=== PATIENT | female | born 1995 | race Caucasian/White ===

== ENCOUNTER 2018-08-07 16:24 | Outpatient (CLI) | payer MEDICAID ==
[~2018-08-07] VITALS: Ht 149.9 cm; Wt 74.1 kg
[2018-08-07 17:25] VITALS: BP 108/68; PULSE 84; RESP 18; Ht 149.9 cm; Wt 74.1 kg
[2018-08-07] MEDS ORDERED: PNV11TAB PO (17:27)
--- NOTE | 2018-08-07 20:41 | PN ---
Triage Information Date/Time Reason for visit: Hand edema and numbness Weeks of Gestation 38 weeks and 2 days /Para Diabetes: none Hypertention: none Objective Vital Signs Date Temp Pulse Resp B/P (MAP) Pulse Ox O2 O2 Flow FiO2 Time Delivery Rate 08/07/18 98.0 84 18 108/68 17:25 (81) Heart Rate: 140's Contractions: None Results/Medications Results 24 hrs Laboratory Tests Test 08/07/18 17:10 Urine Color YELLOW Urine Clarity CLEAR Urine pH 7.0 Urine Specific [place] 1.015 Urine Ketones NEGATIVE Urine Nitrite NEGATIVE Urine Bilirubin NEGATIVE Urine Urobilinogen NEGATIVE Urine Leukocyte Esterase TRACE A Urine Microscopic RBC 0 Urine Microscopic WBC 1 Urine Squamous Epithelial Cells FEW Urine Mucus FEW A Urine Hemoglobin NEGATIVE Urine Glucose NEGATIVE Urine Total Protein NEGATIVE Disposition: Discharge Assessment/Plan 23 years old with single intrauterine at 38 weeks and 2 days complaining of bilateral hand edema and numbness. She states good movement. She denies nausea, vomiting, shortness of breath, chest pain, headache, visual changes, vaginal bleeding or LOF. -FHR: No sign of metabolic acidosis- Category I -Contractions: None -Ultrasound performed: Normal AP -SVE: 1.5/50/-2 cephalic/intact -I discussed the edema could be normal there is no pathology finding on exam. Numbness is due to edema around median nerve. Patient reassured -Symptoms and sign of labor, preeclampsia, kick count discussed with patient, she voiced understanding. All of her questions answered. -Patient was discharged home in stable condition with the appropriate discharge instructions provided. I would like patient to have close follow-up with her primary physician or outpatient clinic in 1-2 days or return to triage for worsening symptoms or any other urgent concerns. VINICIO NAM Aug 07, 2018 20:41
== END 2018-08-07 18:41 | disposition home or self-care (01) ==
LOC: OBT 16:24 → L-D 16:25 → OBT 18:41
PROVIDERS: ATTEND Obstetrics & Gynecology
DX: O12.03 Gestational edema, third trimester (principal); Z3A.38 38 weeks gestation of pregnancy
CPT/HCPCS: 76818; 81001; Z7500; G0463

== ENCOUNTER 2018-08-17 10:13 | Outpatient (CLI) | payer MEDICAID ==
[~2018-08-17 10:13] MED LIST: PNV11TAB PO
[2018-08-17 10:21] VITALS: BP 104/59; PULSE 84
--- NOTE | 2018-08-17 11:37 | PN ---
Triage Information Date/Time 08/17/18 Reason for visit: sent from clinic for hand edema Weeks of Gestation 39w5d /Para Diabetes: none Hypertention: none Objective Vital Signs Date Temp Pulse Resp B/P (MAP) Pulse Ox O2 O2 Flow FiO2 Time Delivery Rate 08/17/18 98.2 84 104/59 10:21 (74) Heart Rate: 140's Heart Rate Comments CAT I Contractions: >10 Minutes Apart Exam VE 1.5/70/-2 Results/Medications Results 24 hrs Laboratory Tests Test 08/17/18 11:00 Urine Color YELLOW Urine Clarity SLIGHTLY CLOUDY A Urine pH 6.0 Urine Specific [place] 1.020 Urine Ketones TRACE A Urine Nitrite NEGATIVE Urine Bilirubin NEGATIVE Urine Urobilinogen 1+ H Urine Leukocyte Esterase NEGATIVE Urine Microscopic RBC 1 Urine Microscopic WBC 2 Urine Squamous Epithelial Cells FEW Urine Mucus FEW A Urine Hemoglobin NEGATIVE Urine Glucose 1+ H Urine Total Protein NEGATIVE Imaging Results BPP 8/8 AP 7.2 Disposition: Discharge Assessment/Plan A IUP 39w5d borderline oligohydramnios P discharge home with routine labor instructions otherwise RTH in 2days for AP GUILLERMO BUI MD Aug 17, 2018 11:37
--- NOTE | 2018-08-17 11:43 | TRIAGE ---
OB Triage Datetime Report Generated by CPN: 08/17/2018 11:43 Datetime: 08/17/2018 11:23 Stage of : OB Triage Datetime: 08/17/2018 11:17 Labor Evaluation Frequency: 6-10 Monitor Mode: External Quality: Mild Pattern: Normal: <= 5 Contractions in 10 Minutes Resting Tone [place]: Relaxed Contraction Comments: denies feeling Heart Rate FHR Baseline Rate: 135 Monitor Mode: External US Variability: Moderate 6-25 bpm Accelerations: 10X10 Decelerations: None Category: Category I Pain Assessment Pain Scale: 0 Pain Presence: None/Denies Pain Type: N/A Pain Goal: 3 Pain Relief Measures: Comfort Measures Datetime: 08/17/2018 10:43 Stage of : OB Triage Datetime: 08/17/2018 10:30 Stage of : OB Triage Datetime: 08/17/2018 10:25 Vaginal Exam Dilatation (cms): 1.5 Effacement (%): 70 Station: -2 Exam By: S TREVIN Vaginal Bleeding: None Cervix, Consistency: Soft Cervix, Position: Midposition Presentation 'A': Cephalic Datetime: 08/17/2018 10:18 Stage of : OB Triage Assessment Type: Triage Maternal Assessment Level of Consciousness: Fully Conscious DTR's/Clonus: DTRs 2+; No Clonus Headache: Denies Blurred Vision: No Respiratory Effort: Unlabored; Regular Rhythm; Equal Expansion Breath Sounds, Left: Clear and Equal Breath Sounds, Right: Clear and Equal Nausea/Vomiting: Denies RUQ Epigastric Pain: Denies Facial Edema: None Temperature Route: Axillary Fall Risk Assessment History of Falling: (0) No Secondary Diagnosis: (0) No Ambulatory Aid: (0) Bedrest/Nurse Assist IV Therapy: (0) No Gait: (0) Normal/Bedrest/Immobile Mental Status: (0) Oriented to Own Ability Fall Score: 0 Fall Risk Score Definition: No Risk: No action required Labor Evaluation Frequency: 1 Monitor Mode: External Duration (sec)2399: 50 Quality: Mild Pattern: Normal: <= 5 Contractions in 10 Minutes Intensity IUP (mmHg): DENIES FEELING Resting Tone [place]: Relaxed Heart Rate FHR Baseline Rate: 135 Monitor Mode: External US Variability: Moderate 6-25 bpm Accelerations: None Decelerations: None Pain Assessment Pain Scale: 0 Pain Presence: None/Denies Pain Type: N/A Pain Goal: 3 Pain Relief Measures: Comfort Measures Datetime: 08/17/2018 10:16 Time of Arrival: 08/17/2018 10:00 EGA: 39.5 Arrived By: Ambulatory Arrived From: Office Chief Complaint: REFERRED FROM DR OFFICE FOR HAND EDEMA, DENIES LEAKING, BLEEDING OR UC'S Movement: Present Contractions: Denies/Absent Rupture of Membranes: Denies Vaginal Bleeding: None Vaginal Discharge: Denies Recent Sexual Intercouse: Denies Abdominal Trauma: Not Applicable Patient Complaints: None Time Provider Notified: 08/17/2018 10:45 Provider Notified: HADADIAN Initial Plan: MONITOR, BPP Datetime: 08/07/2018 18:39 Stage of : OB Triage Datetime: 08/07/2018 17:56 Labor Evaluation Frequency: 5-8 Monitor Mode: External Duration (sec)2399: 30-50 Quality: Mild Pattern: Normal: <= 5 Contractions in 10 Minutes Resting Tone [place]: Relaxed Heart Rate FHR Baseline Rate: 125 Monitor Mode: External US Variability: Moderate 6-25 bpm Accelerations: 10X10 Decelerations: None Category: Category I Pain Assessment Pain Scale: 0 Pain Presence: None/Denies Pain Type: N/A Pain Goal: 3 Pain Relief Measures: Comfort Measures Datetime: 08/07/2018 17:12 Vaginal Exam Dilatation (cms): 1.5 Effacement (%): 50 Station: -2 Exam By: S TREVIN Vaginal Bleeding: None Cervix, Consistency: Soft Cervix, Position: Midposition Presentation 'A': Cephalic Datetime: 08/07/2018 17:05 Stage of : OB Triage Datetime: 08/07/2018 16:55 Stage of : OB Triage Assessment Type: Triage Maternal Assessment Level of Consciousness: Fully Conscious DTR's/Clonus: DTRs 2+; No Clonus Headache: Denies Blurred Vision: No Respiratory Effort: Unlabored; Regular Rhythm; Equal Expansion Breath Sounds, Left: Clear and Equal Breath Sounds, Right: Clear and Equal Nausea/Vomiting: Denies RUQ Epigastric Pain: Denies Facial Edema: None Temperature Route: Axillary Fall Risk Assessment History of Falling: (0) No Secondary Diagnosis: (0) No Ambulatory Aid: (0) Bedrest/Nurse Assist IV Therapy: (0) No Gait: (0) Normal/Bedrest/Immobile Mental Status: (0) Oriented to Own Ability Fall Score: 0 Fall Risk Score Definition: No Risk: No action required Labor Evaluation Frequency: APPLIED Monitor Mode: External Resting Tone [place]: Relaxed Heart Rate FHR Baseline Rate: 120 Monitor Mode: External US Variability: Moderate 6-25 bpm Decelerations: None Pain Assessment Pain Scale: 0 Pain Presence: None/Denies Pain Type: N/A Pain Goal: 3 Pain Relief Measures: Comfort Measures Datetime: 08/07/2018 16:53 Time of Arrival: 08/07/2018 16:19 EGA: 38.2 Arrived By: Ambulatory Arrived From: Dr. Nuñez Chief Complaint: REFERRED FROM OFFICE FOR HX OF PTL, DENIES LEAKING, BLEEDING OR UC'S Movement: Present Rupture of Membranes: Denies Vaginal Discharge: Denies Recent Sexual Intercouse: Denies Abdominal Trauma: Not Applicable Time Provider Notified: 08/07/2018 17:05 Provider Notified: ebony Initial Plan: MONITOR, BPP. u/a, ve,
== END 2018-08-17 11:35 | disposition home or self-care (01) ==
LOC: L-D 10:13 → OBT 10:13
PROVIDERS: ATTEND Obstetrics & Gynecology
DX: O41.03X0 Oligohydramnios, third trimester, not applicable or unspecified (principal); O12.03 Gestational edema, third trimester; Z3A.39 39 weeks gestation of pregnancy
CPT/HCPCS: 76818; 81001; 87086; Z7500; 81003; G0463

== ENCOUNTER 2018-08-17 17:21 | Inpatient (IN) | payer MEDICAID ==
[~2018-08-17] VITALS: Ht 152.4 cm; Wt 76.1 kg
[2018-08-17] MEDS ORDERED: LIDOCAINE 1% (MPF) 30 ML INJ INJ PRN (17:30)
[2018-08-17] MEDS ORDERED: BUTORPHANOL 2 MG INJ IV PRN (17:30)
[2018-08-17] MEDS ORDERED: CARBOPROST 250 MCG INJ IM PRN ×2 (17:30→22:00)
[2018-08-17] MEDS ORDERED: OXYTOCIN 30 UNITS/LR 500 ML IV SCH ×2 (17:30)
[2018-08-17] MEDS ORDERED: IBUPROFEN 600 MG TAB PO PRN (17:30)
[2018-08-17] MEDS ORDERED: LACTATED RINGER'S 1,000 ML IV SCH (17:30)
[2018-08-17] MEDS ORDERED: OXYTOCIN 30 UNITS/LR 500 ML IV PRN ×2 (17:30→22:00)
[2018-08-17] MEDS ORDERED: MISOPROSTOL 200 MCG TAB PR PRN ×2 (17:30→22:00)
[2018-08-17] MEDS ORDERED: METHYLERGONOVINE 0.2 MG INJ IM PRN ×2 (17:30→22:00)
[2018-08-17 17:36] VITALS: BP 104/59; PULSE 84; RESP 18; Ht 152.4 cm; Wt 76.1 kg
--- NOTE | 2018-08-17 18:21 | HP ---
Date/Time of Note Date/Time of Note DATE: 08/17/18 TIME: 18:15 OB - History Hx of Present Free Text/Dictation 23 y.o who have hx of PTB at 34wwith ist prenancy been on shwetha here in active labor with intact membrane, VE 8cm EFM CAT I tracing course was unevenful GBS neg admitted for expectant management. Chief Complaint: uc's Estimated Due Date: Aug 19, 2018 : 3 Para: 2 Spontaneous : 0 Therapeutic : 0 Care: Good Care Ultrasounds: Normal mid trimester US Medical Complications: None Past Family/Social History * Past Medical, Surgical, Family and Obstetric Histories reviewed from chart. Blood Type: O+ Rubella: immune RPR/VDRL: Negative GBS Status: Negative HBsAG: Negative OB Admission Exam Vital Signs Vital Signs Vital Signs Date Temp Pulse Resp B/P (MAP) Pulse Ox O2 O2 Flow FiO2 Time Delivery Rate 08/17/18 98.2 84 18 104/59 Room Air 17:36 (74) Physical Exam HEENT: WNL Heart: Rhythm Normal Lungs: Clear, Equal Abdomen: WNL Extremities: Normal Reflexes: Normal Cervical Dilatation: 8cm Effacement: 100% Station: -2 Membranes: Intact Amniotic Fluid: Unevaluable Heart Rate: 140's Accelerations: Accelerations Present Decelerations: No Decelerations Varibility: Moderate Contractions on Admission: < 5 Minutes Apart Intensity: Firm OB Assessment/Plan Reason for admission: active labor Other Assessment: IUP 39w5d Plan: Expectant Management GUILLERMO BUI MD Aug 17, 2018 18:21
--- NOTE | 2018-08-17 18:24 | LDN ---
Date/Time of Note Date/Time of Note DATE: 08/17/18 TIME: 18:22 Delivery Summary of normal male Weeks of Gestation 39w5d Placenta Delivered: Spontaneously, Intact & Complete Meconium: none Episiotomy: No Perineal laceration: 0 Anesthesia type: None Estimated blood loss: 150 Sponge & Needle done & correct: Yes All needle counts correct: Yes Any foreign bodies felt in the: No Delivery Information Sex Infant Sex: male Apgars 1 Minute: 8 5 Minute: 9 Suctioning Nose & mouth suctioned at sheeba: Yes Delee suction performed: Yes Umbilical Cord Umbilical cord with: 3 Vessels Cord presentations: no nuchal cord Cord Blood was obtained: Yes Mother & Baby Disposition Disposition Mom & Baby to Maternity; Good: Yes Mom transferred to: Other Baby to NICU: No () GUILLERMO BUI MD Aug 17, 2018 18:24
[2018-08-17 19:55] VITALS: BP 116/58; PULSE 62; RESP 19
[2018-08-17] MEDS ORDERED: ZOLPIDEM 5 MG TAB PO PRN (22:00)
[2018-08-17] MEDS ORDERED: BENZOCAINE 20% 56 ML SPRAY TOP PRN (22:00)
[2018-08-17] MEDS ORDERED: WITCH HAZEL/GLYCERIN PAD PR PRN (22:00)
[2018-08-17] MEDS ORDERED: LANOLIN HPA 1 PKT TOP PRN (22:00)
[2018-08-17] MEDS ORDERED: OXYCODONE/ASPIRIN (4.88/325) TAB PO PRN ×2 (22:00)
[2018-08-18 04:00] VITALS: BP 95/50; PULSE 73; RESP 18
[2018-08-18] MEDS: IBUPROFEN 600 MG TAB PO SCH ×4 (06:00→17:31)
[2018-08-18 07:20] VITALS: BP 100/58; PULSE 65; RESP 16
[2018-08-18] MEDS: SENNA/DOCUSATE NA (8.6MG/50MG) TAB PO SCH ×2 (09:17→21:00)
[2018-08-18 15:30] VITALS: BP 100/63; PULSE 75; RESP 17
--- NOTE | 2018-08-18 17:12 | PN ---
Date/Time of Note Date/Time of Note DATE: 08/18/18 TIME: 17:10 OB Subjective Subjective Subjective PPD# 1 Patient is doing well. She denies nausea, vomiting, shortness of breath, chest pain, headache. She has been ambulating without difficulty, tolerating regular diet. Pain is well controlled on current medications OB Objective Objective Objective VS - Last 72 Hours, by Label Date Temp Pulse Resp B/P (MAP) Pulse Ox O2 O2 Flow FiO2 Time Delivery Rate 08/18/18 98.6 75 17 100/63 15:30 (75) 08/18/18 98.7 65 16 100/58 Room Air 07:20 (72) 08/18/18 98.1 73 18 95/50 (65) Room Air 04:00 08/17/18 99.3 62 19 116/58 Room Air 19:55 (77) 08/17/18 98.2 84 18 104/59 Room Air 17:36 (74) General: AAO X 3, comfortable, NAD, appropriate mood and affect. ABD: +BS. Soft, non-tender. Uterus 2 cm below umbilicus Flank: No CVA tenderness (B/L) LE: Mild edema. No clubbing, cyanosis, thigh or calf tenderness (B/L). Homans 'sign is negative Laboratory Tests Test 08/17/18 17:30 08/18/18 07:20 White Blood Count 5.7 10^3/ul 8.4 10^3/ul Red Blood Count 4.17 10^6/ul 3.62 10^6/ul Hemoglobin 13.3 g/dl 11.5 g/dl Hematocrit 39.9 % 34.6 % Mean Corpuscular Volume 95.7 fl 95.6 fl Mean Corpuscular Hemoglobin 31.9 pg 31.8 pg Mean Corpuscular Hemoglobin Concent 33.3 g/dl 33.2 g/dl Red Cell Distribution Width 13.6 % 13.8 % Platelet Count 174 10^3/UL 145 10^3/UL Mean Platelet Volume 11.6 fl 11.8 fl Immature Granulocytes % 1.600 % 1.300 % Neutrophils % 70.1 % 76.4 % Lymphocytes % 20.5 % 16.4 % Monocytes % 6.5 % 5.2 % Eosinophils % 0.9 % 0.6 % Basophils % 0.4 % 0.1 % Nucleated Red Blood Cells % 0.0 /100WBC 0.0 /100WBC Immature Granulocytes # 0.090 10^3/ul 0.110 10^3/ul Neutrophils # 4.0 10^3/ul 6.4 10^3/ul Lymphocytes # 1.2 10^3/ul 1.4 10^3/ul Monocytes # 0.4 10^3/ul 0.4 10^3/ul Eosinophils # 0.1 10^3/ul 0.1 10^3/ul Basophils # 0.0 10^3/ul 0.0 10^3/ul Nucleated Red Blood Cells # 0.0 10^3/ul 0.0 10^3/ul Prothrombin Time 11.5 Sec Prothrombin Time Ratio 0.9 INR International Normalized Ratio 0.83 Activated Partial Thromboplast Time 26.1 Sec Rapid Plasma Reagin NONREACTIVE OB Assessment/Plan Other plan: 23 years old 3 para 3003 s/p normal vaginal delivery at 39 weeks and 5 days. PPD#1 - AF, VSS - Baby is doing well, at bed side. She is bonding well - Contraception methods with R/B/A/FR discussed - Continue care - Discharge home tomorrow - Rx and instruction given - Follow up in 2 and 6 weeks at clinic VINICIO NAM Aug 18, 2018 17:12
--- NOTE | 2018-08-18 17:13 | DS ---
Date/Time of Note Date/Time of Note DATE: 08/18/18 TIME: 17:12 Obstetrical Discharge Record Final Diagnosis Final Diagnosis: Term delivered Other Final Diagnosis 23 years old 3 para 3003 s/p normal vaginal delivery at 39 weeks and 5 days. PPD#1. course was unremarkable. She is ambulating and tolerating regular diet. She is voiding without difficulty. Pain is controlled on current medication - AF, VSS - Baby is doing well, at bed side. She is bonding well - Contraception methods with R/B/A/FR discussed - Continue care - Discharge home tomorrow - Rx and instruction given - Follow up in 2 and 6 weeks at clinic Vaginal Delivery Obstetrical Delivery: Spontaneous Condition on Discharge Physical Assessment Last Vitals: Vital Signs Date Temp Pulse Resp B/P (MAP) Pulse Ox O2 O2 Flow FiO2 Time Delivery Rate 08/18/18 98.6 75 17 100/63 15:30 (75) 08/18/18 Room Air 07:20 Voiding: Yes Bowel Movement: Yes Fundus: Firm Calf Tenderness: No Patient Condition: Stable VINICIO NAM Aug 18, 2018 17:13
[2018-08-18 20:00] VITALS: BP 98/66; PULSE 74; RESP 18; RESP 19
[2018-08-19 03:45] VITALS: BP 92/63; PULSE 68; RESP 18
[2018-08-19] MEDS: IBUPROFEN 600 MG TAB PO SCH ×3 (06:00→11:13)
[2018-08-19 08:15] VITALS: BP 114/57; PULSE 74; RESP 16
[2018-08-19] MEDS ORDERED: DIPHTH/TET/ACEL PERTUSS (ADULT) 0.5 ML VIAL IM* ONE (09:00)
[2018-08-19] MEDS: SENNA/DOCUSATE NA (8.6MG/50MG) TAB PO SCH (11:13)
[2018-08-19 11:33] VITALS: BP 119/67; PULSE 80; RESP 18
--- NOTE | 2018-08-20 13:50 | DELSUM ---
Delivery Summary A-C Datetime Report Generated by CPN: 08/20/2018 13:50 DELIVERY PERSONNEL Trucksmith: Toya Jonesnda MATERNAL INFORMATION Delivery Anesthesia: None Medications in Delivery: 30 Units Pitocin Delivery QBL (ml): 148 Placenta Cultured: No Maternal Complications: None LABOR SUMMARY EDC: 08/19/2018 00:00 No. Babies in Womb: 1 Attempted: No Labor Anesthesia: None LABOR INFORMATION Reason for Induction: Not Applicable Onset of Labor: 08/17/2018 14:00 Complete Dilatation: 08/17/2018 17:46 Oxytocin: N/A Group B Beta Strep: Negative Antibiotics # of Doses: 0 Steroids Given: None Reason Steroids Not Administered: Not Applicable MEMBRANES Membranes Rupture Method: Artificial Rupture of Membranes: 08/17/2018 17:49 Length of Rupture (hr): 0.05 Amniotic Fluid Color: Clear Amniotic Fluid Amount: Large Amniotic Fluid Odor: None STAGES OF LABOR Stage 1 hr: 3 Stage 1 min: 46 Stage 2 hr: 0 Stage 2 min: 6 Stage 3 hr: 0 Stage 3 min: 3 Total Time in Labor hr: 3 Total Time in Labor min: 55 VAGINAL DELIVERY Episiotomy: None Laceration Extension: N/A Laceration Type: None Laceration Repair: Not Applicable Initial Vag Sponge Count: 10 Final Vag Sponge Count: 10 Initial Vag Sharps Count: 1 Final Vag Sharps Count: 1 Sponge Count Correct: Yes; Vaginal Sweep Performed Sharps Count Correct: Yes BABY A INFORMATION Infant Delivery Date/Time: 08/17/2018 17:52 Method of Delivery: Vaginal Born in Route : No : N/A Forceps: N/A Vacuum Extraction: N/A Shoulder Dystocia : N/A SHOULDER DYSTOCIA BABY A Infant Delivery Date/Time: 08/17/2018 17:52 PRESENTATION/POSITION BABY A Presentation: Cephalic Cephalic Presentation: Vertex Breech Presentation: N/A PLACENTA INFORMATION BABY A Placenta Delivery Time : 08/17/2018 17:55 Placenta Method of Delivery: Spontaneous Placenta Status: Delivered SCORES BABY A Heart Rate 1 min: >100 bpm Resp Effort 1 min: Good Cry Reflex Irritability 1 min: Cough/Sneeze/Pulls Away Muscle Tone 1 min: Active Motion Color 1 min: Body [place], Extremit Blue Resuscitation Effort 1 min: Tactile Stimulation SCORE 1 MIN: 9 Heart Rate 5 min: >100 bpm Resp Effort 5 min: Good Cry Reflex Irritability 5 min: Cough/Sneeze/Pulls Away Muscle Tone 5 min: Active Motion Color 5 min: Body [place], Extremit Blue Resuscitation Effort 5 min: Tactile Stimulation SCORE 5 MIN: 9 INFANT INFORMATION BABY A Gestational Age at Delivery: 39.5 Gestational Status: Full Term- 39- 40.6 Weeks Outcome : Liveborn Condition : Stable Sex: Male IDENTIFICATION/MEDS BABY A ID Band Number: [id number] ID Band Location: Right Arm; Left Arm Sensor Applied: Yes Sensor Number: [id number] Sensor Location : Cord Clamp Vitamin K Given : Not Given Erythromycin Given: Not Given WEIGHT/LENGTH BABY A Birthweight (gm): 3615 Weight (lb): 8 Infant Weight (oz): 0 Infant Length (in): 21.00 Length (cm): 53.34 CORD INFORMATION BABY A No. Cord Vessels: 3 Nuchal Cord : N/A Cord Blood Taken: Yes Suction: Mouth; Nose
== END 2018-08-19 13:25 | disposition home or self-care (01) | DRG 807 ==
LOC: L-D 17:21 → OBT 17:21 → L-D 17:33 → PP1 20:01 → EDSTATUS 08-19 17:33
PROVIDERS: ADMIT Obstetrics & Gynecology; ATTEND Obstetrics & Gynecology
PROC: 10E0XZZ Delivery of Products of Conception, External Approach (ICD-10-PCS; principal; 2018-08-17)
DX: O80 Encounter for full-term uncomplicated delivery (principal); Z37.0 Single live birth; Z3A.39 39 weeks gestation of pregnancy
CPT/HCPCS: 85025; 85610; 85730; 86592; 86850; 86900; 86901; 90715; J2590; J7120